=== PATIENT | male | born 2000 | race Caucasian/White ===

== ENCOUNTER 2020-07-15 23:07 | Emergency (ER) | payer MEDICAID ==
[~2020-07-15] VITALS: Ht 170.2 cm; Wt 73.9 kg
[2020-07-15 23:14] VITALS: BP 147/95
--- NOTE | 2020-07-15 23:17 | NUR ---
TO LOBBY A/W BED AMBULATORY
--- NOTE | 2020-07-16 00:10 | NUR ---
SEEN AND EXAMINED BY KULWINDER WITH ORDERS,AND CARRIED OUT.
[2020-07-16 00:59] LABS: APPEARANCE,URINE CLEAR (CLEAR); BILIRUBIN,URINE NEGATIVE (NEGATIVE); BLOOD, URINE NEGATIVE (NEGATIVE); COLOR,URINE YELLOW (YELLOW); LEUKOCYTE ESTERASE ,URINE NEGATIVE (NEGATIVE); NITRITE, URINE NEGATIVE (NEGATIVE); UGLUCOSE NEGATIVE (NEGATIVE)
[2020-07-16] MEDS ORDERED: CEPH500T PO (01:30)
[2020-07-16] MEDS ORDERED: IBUP-1842 PO (01:30)
[2020-07-16] MEDS ORDERED: KETOROLAC 30 MG/ML VIAL IM ONE (01:30)
[2020-07-16] MEDS ORDERED: PHEN-1593 PO (01:30)
--- NOTE | 2020-07-16 01:31 | NUR ---
PATIENT ELOPED FROM FACILITY. DISCHARGE INSTRUCTIONS NOT GIVEN TO PATIENT. DR. CHEUNG NOTIFIED.
== END 2020-07-16 01:31 | disposition left against medical advice (07) ==
LOC: MED 23:07
DX: R30.0 Dysuria (principal)
CPT/HCPCS: 81003; 99283; J1885

== ENCOUNTER 2022-03-05 04:00 | Emergency (ER) | payer MEDICAID ==
[~2022-03-05] VITALS: Ht 175.3 cm; Wt 74.8 kg
[~2022-03-05 04:00] MED LIST: CEPH500T PO; IBUP-1842 PO; PHEN-1593 PO
[2022-03-05 04:11] VITALS: BP 140/80
--- NOTE | 2022-03-05 04:14 | NUR ---
TO BED AMBULATORY
--- NOTE | 2022-03-05 04:57 | NUR ---
SWABS COLLECTED AND SENT TO LAB
--- NOTE | 2022-03-05 05:10 | NUR ---
PT TO BED #8
[2022-03-05] MEDS ORDERED: ROB PO (05:45)
[2022-03-05] MEDS ORDERED: ALBU0.0912 IH (05:45)
--- NOTE | 2022-03-05 05:50 | NUR ---
ER MD at bedside examining patient.
--- NOTE | 2022-03-05 05:56 | NUR ---
Patient discharged with v/s stable. Written and verbal after care instructions given and explained. Patient alert, oriented and verbalized understanding of instructions. Ambulatory with steady gait. All questions addressed prior to discharge. ID band removed. Patient advised to follow up with PMD. Rx of robitussin and albuterol sulfate given. Patient educated on indication of medication including possible reaction and side effects. Opportunity to ask questions provided and answered.
== END 2022-03-05 05:56 | disposition home or self-care (01) ==
LOC: MED 04:00
DX: J40 Bronchitis, not specified as acute or chronic (principal); Z20.822 Contact with and (suspected) exposure to COVID-19; Z72.89 Other problems related to lifestyle
CPT/HCPCS: 71045; 87426; 87804; 99284; Q0092

== ENCOUNTER 2022-04-08 01:43 | Emergency (ER) | payer MEDICAID ==
[~2022-04-08] VITALS: Ht 172.7 cm; Wt 79.4 kg
[~2022-04-08 01:43] MED LIST changes: +ALBU0.0912 IH; +ROB PO
[2022-04-08 01:48] VITALS: BP 131/71
--- NOTE | 2022-04-08 01:50 | NUR ---
PT TAKEN TO BED 1
--- NOTE | 2022-04-08 02:00 | NUR ---
Patient is A/Ox4, chest rise and fall symmetrical, no c/o pain or s/s of distress, on monitor.
--- NOTE | 2022-04-08 02:15 | NUR ---
ER physician assessing patient.
[2022-04-08] MEDS ORDERED: BENZ200C4 PO (03:03)
[2022-04-08] MEDS ORDERED: MUC600 PO (03:03)
[2022-04-08 03:09] VITALS: BP 125/84
[2022-04-09] MEDS ORDERED: ROB PO (07:34)
[2022-04-09] MEDS ORDERED: FLONAS NS (07:34)
== END 2022-04-08 03:09 | disposition home or self-care (01) ==
LOC: MED 01:43
DX: J06.9 Acute upper respiratory infection, unspecified (principal); R09.81 Nasal congestion; R09.89 Other specified symptoms and signs involving the circulatory and respiratory systems; Z79.899 Other long term (current) drug therapy
CPT/HCPCS: 71046; 99283

== ENCOUNTER 2022-04-09 06:44 | Emergency (ER) | payer MEDICAID ==
[~2022-04-09] VITALS: Ht 172.7 cm; Wt 72.6 kg
[~2022-04-09 06:44] MED LIST changes: +BENZ200C4 PO; +MUC600 PO
[2022-04-09 06:55] VITALS: BP 118/57
--- NOTE | 2022-04-09 07:00 | NUR ---
pt to lobby
--- NOTE | 2022-04-09 07:25 | NUR ---
dr alford at pt side for eval
[2022-04-09] MEDS ORDERED: DEXAMETHASONE 4 MG TAB PO ONE (07:30)
[2022-04-09] MEDS ORDERED: ROB PO (07:34)
[2022-04-09] MEDS ORDERED: FLONAS NS (07:34)
[2022-04-09] MEDS ORDERED: CRUSHER, PILL MC ONE (07:38)
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
--- NOTE | 2022-04-09 07:53 | NUR ---
Patient discharged with v/s stable. Written and verbal after care instructions ABOUT COUGH AND UPPER RESPIRATORY INFECTION given and explained. Patient alert, oriented and verbalized understanding of instructions. Ambulatory with steady gait. All questions addressed prior to discharge. ID band removed. Patient advised to follow up with PMD. Rx of ROBITUSSIN, FLONASE given. Patient educated on indication of medication including possible reaction and side effects. Opportunity to ask questions provided and answered.
== END 2022-04-09 07:53 | disposition home or self-care (01) ==
LOC: MED 06:44
DX: J06.9 Acute upper respiratory infection, unspecified (principal); Z20.822 Contact with and (suspected) exposure to COVID-19
CPT/HCPCS: 99283

== ENCOUNTER 2022-04-12 13:50 | Emergency (ER) | payer MEDICAID ==
[~2022-04-12] VITALS: Ht 172.7 cm; Wt 93.0 kg
[~2022-04-12 13:50] MED LIST changes: +FLONAS NS
[2022-04-12 13:56] VITALS: BP 103/62
[2022-04-12] MEDS ORDERED: CYCLOBENZAPRINE 10 MG TAB PO ONE (14:10)
[2022-04-12] MEDS ORDERED: KETOROLAC 30 MG/ML VIAL IM ONE (14:10)
--- NOTE | 2022-04-12 14:18 | NUR ---
Pt taken to Xray via w/c.
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
[2022-04-12] MEDS ORDERED: IBUP-2213 PO (14:54)
[2022-04-12] MEDS ORDERED: METH-1681 PO (14:54)
--- NOTE | 2022-04-12 15:09 | NUR ---
Patient discharged with v/s stable. Written and verbal after care instructions given and explained. Patient alert, oriented and verbalized understanding of instructions. Ambulatory with steady gait. All questions addressed prior to discharge. ID band removed. Patient advised to follow up with PMD. Rx of Robaxin and Ibuprofen given. Patient educated on indication of medication including possible reaction and side effects. Opportunity to ask questions provided and answered.
== END 2022-04-12 15:09 | disposition home or self-care (01) ==
LOC: MED 13:50
DX: S16.1XXA Strain of muscle, fascia and tendon at neck level, initial encounter (principal); M54.9 Dorsalgia, unspecified; J45.909 Unspecified asthma, uncomplicated; F17.210 Nicotine dependence, cigarettes, uncomplicated; V47.5XXA Car driver injured in collision with fixed or stationary object in traffic accident, initial encounter; Y93.89 Activity, other specified; Y92.89 Other specified places as the place of occurrence of the external cause; Y99.8 Other external cause status
CPT/HCPCS: 72050; 99283; J1885

== ENCOUNTER 2023-08-04 23:22 | Emergency (ER) | payer MEDICAID ==
[~2023-08-04] VITALS: Ht 177.8 cm; Wt 114.8 kg
[~2023-08-04 23:22] MED LIST changes: +IBUP-2213 PO; +METH-1681 PO
[2023-08-05 00:28] VITALS: BP 139/77; PULSE 82; RESP 16; TEMP 97.5; O2SAT 100
[2023-08-05 02:00] VITALS: O2SAT 100
== END 2023-08-05 02:40 | disposition home or self-care (01) ==
LOC: MED 23:22
DX: R07.89 Other chest pain (principal); T43.615A Adverse effect of caffeine, initial encounter; J45.909 Unspecified asthma, uncomplicated; Z79.899 Other long term (current) drug therapy; Y92.89 Other specified places as the place of occurrence of the external cause
CPT/HCPCS: 93005; 99283

== ENCOUNTER 2023-10-19 23:23 | Emergency (ER) | payer MEDICAID ==
[~2023-10-19] VITALS: Ht 170.2 cm; Wt 121.1 kg
[2023-10-19 23:37] VITALS: BP 129/79; PULSE 62; RESP 18; TEMP 97.4; O2SAT 99
[2023-10-20 00:32] VITALS: BP 129/79; PULSE 62; RESP 18; TEMP 97.4; O2SAT 99
[2023-10-20] MEDS: KETOROLAC 30 MG/ML VIAL IM ONE (01:25)
[2023-10-20] MEDS: LORazepam 1 MG TAB PO ONE (01:25)
[2023-10-20] MEDS ORDERED: ATI.5 PO (02:34)
[2023-10-20] MEDS ORDERED: NAPR-1704 PO (02:34)
== END 2023-10-20 02:40 | disposition home or self-care (01) ==
LOC: MED 23:23
DX: F41.9 Anxiety disorder, unspecified (principal); R07.9 Chest pain, unspecified; M54.9 Dorsalgia, unspecified; J45.909 Unspecified asthma, uncomplicated; Z79.899 Other long term (current) drug therapy
CPT/HCPCS: 99283; J1885

== ENCOUNTER 2023-10-23 16:50 | Emergency (ER) | payer MEDICAID ==
[~2023-10-23] VITALS: Ht 170.2 cm; Wt 115.7 kg
[~2023-10-23 16:50] MED LIST changes: +ATI.5 PO; +NAPR-1704 PO
[2023-10-23 16:51] VITALS: BP 132/79; PULSE 70; RESP 20; TEMP 98.3; O2SAT 99
[2023-10-23 17:24] LABS: BASOPHILS % (AUTO) 0.3 % (0.0-2.0); EOSINOPHILS % (AUTO) 0.3 % (0.0-4.0); HEMATOCRIT 42.1 % (36-52); HEMOGLOBIN 14.6 g/dL (12.0-18.0); LYMPHOCYTES # (AUTO) 2.5 K/uL (2.0-11.5); LYMPHOCYTES % (AUTO) 24.5 % (20.5-51.1); MEAN CORPUSCULAR HEMOGLOBIN 31 pg (27-31); MEAN CORPUSCULAR HGB CONC 35 g/dL (33-37); MEAN CORPUSCULAR VOLUME 88.7 fL (80-94); MONOCYTES # (AUTO) 0.7 K/uL (0.8-1.0); MONOCYTES % (AUTO) 6.5 % (1.7-9.3); NEUTROPHILS # (AUTO) 6.9 K/uL (1.8-7.7); NEUTROPHILS % (AUTO) 68.4 % (42.2-75.2); PLATELET COUNT (AUTO) 265 K/uL (140-450); RED BLOOD CELL COUNT(AUTO) 4.75 MIL/uL (4.20-6.10); RED CELL DISTRIBUTION WIDTH 13.1 % (11.6-13.7); WHITE BLOOD COUNT (AUTO) 10.2 K/uL (4.8-10.8)
[2023-10-23] MEDS ORDERED: ALUMINUM HYD/MAG/SIMETHICONE 30 ML UDC ONE (17:25)
[2023-10-23] MEDS ORDERED: DICYCLOMINE HCL LIQUID 10 MG/5 ML UDC ONE (17:25)
[2023-10-23] MEDS: DICYCLOMINE HCL LIQUID 20 MG, ALUMINUM HYD/MAG/SIMETHICONE 30 ML, LIDOCAINE VISCOUS 2% ... PO ONE (17:27)
[2023-10-23 17:42] LABS: ANION GAP 13.9 (8-16); CALCIUM 9.5 mg/dL (8.5-10.1); CARBON DIOXIDE 24.9 mmol/L (21-32); CREATININE 0.9 mg/dL (0.6-1.3); POTASSIUM 3.8 mmol/L (3.5-5.1)
[2023-10-23 18:34] VITALS: BP 130/87; PULSE 76; RESP 20; TEMP 98.3; O2SAT 99
== END 2023-10-23 18:34 | disposition home or self-care (01) ==
LOC: MED 16:50
DX: R07.89 Other chest pain (principal); J45.909 Unspecified asthma, uncomplicated; Z79.899 Other long term (current) drug therapy
CPT/HCPCS: 36415; 71045; 80048; 84484; 85025; 93005; 99285; Q0092